=== PATIENT | female | born 1970 | race Caucasian/White ===

== ENCOUNTER 2021-10-27 07:48 | Day surgery (SDC) | payer OTHER ==
[2021-10-26 10:14] LABS: BASOPHILS % (AUTO) 0.4 % (0.0-5.0); EOSINOPHILS % (AUTO) 0.6 % (0.0-8.0); HEMATOCRIT 38.7 % (36-48); MEAN CORPUSCULAR HEMOGLOBIN 29.8 pg (27.0-33.0); MEAN CORPUSCULAR HGB CONC 33.1 g/dL (32.0-36.0); MEAN CORPUSCULAR VOLUME 90.2 fL (79-99); MONOCYTES % (AUTO) 8.7 % (3.0-13.0); NEUTROPHILS % (AUTO) 61.1 % (40.0-77.0); PLATELET COUNT (AUTO) 205 K/uL (130-400); RED BLOOD CELL COUNT(AUTO) 4.29 MIL/uL (4.00-5.50); RED CELL DISTRIBUTION WIDTH 13.1 % (11.0-15.5)
[2021-10-26 14:26] VITALS: BP 145/75
[2021-10-27] VITALS (11 sets, daily range): BP systolic 79–142; BP diastolic 37–77
[~2021-10-27] VITALS: Ht 160 cm; Wt 81.8 kg
[~2021-10-27 07:48] MED LIST: AZO YEAST PLUS PO; BIOT10006 PO; CALC-1125 PO; CALDOLOR 800MG+NS 250ML 250 ML IV SCH; CEFAZOLIN SODIUM 2 GM VIAL IV SCH; CETI10TA57 PO; METO-408 PO; MULT-1258 PO; PANT40TA54 PO; PEPPERMINT OIL PO; PROG100C11 PO; TRIAMTERENE PO
[2021-10-27] MEDS ORDERED: CEFAZOLIN SODIUM 1 GM VIAL ONE (08:45)
[2021-10-27] MEDS ORDERED: LACTATED RINGERS 1000ML 1,000 ML IV ONE (08:46)
[2021-10-27] MEDS ORDERED: MORPHINE PF 100MG/10ML AMP IV ONE (09:52)
[2021-10-27] MEDS ORDERED: CEFAZOLIN SODIUM 2 GM VIAL IV ONE (10:10)
== END 2021-10-27 11:33 | disposition home or self-care (01) ==
LOC: DAH 07:48
PROVIDERS: ATTEND Obstetrics & Gynecology
DX: N95.0 Postmenopausal bleeding (principal); Z20.822 Contact with and (suspected) exposure to COVID-19; N84.0 Polyp of corpus uteri; I10 Essential (primary) hypertension; E78.5 Hyperlipidemia, unspecified; E78.00 Pure hypercholesterolemia, unspecified; K21.9 Gastro-esophageal reflux disease without esophagitis; G43.909 Migraine, unspecified, not intractable, without status migrainosus; M79.7 Fibromyalgia; Z98.890 Other specified postprocedural states; Z82.49 Family history of ischemic heart disease and other diseases of the circulatory system; Z83.3 Family history of diabetes mellitus; Z80.0 Family history of malignant neoplasm of digestive organs; Z83.42 Family history of familial hypercholesterolemia
CPT/HCPCS: 36415; 85025; 86850; 86900; 86901; 87635; A4351; C9803; J0690; J1741; J2274; J7030; J7120